=== PATIENT | male | born 1960 ===

== ENCOUNTER 2023-03-14 20:11 | Emergency (ER) | payer SELFPAY | END 2023-03-14 21:30 | disposition left against medical advice (07) | LOC: MW.ED 20:11 → MERGE 20:11 → MW.ED 21:30 | DX: Z53.21 Procedure and treatment not carried out due to patient leaving prior to being seen by health care provider (principal) ==

== ENCOUNTER 2023-03-15 08:45 | Emergency (ER) | payer SELFPAY ==
[2023-03-15] MEDS ORDERED: Ibuprofen 600 MG Tab PO ONE (09:48)
[2023-03-15] MEDS ORDERED: Acetaminophen 500 MG Tab PO ONE (09:48)
[2023-03-15] MEDS ORDERED: Lidocaine 1% with EPINEPHrine 1:100,000 10 ML MDV INJECT ONE (09:49)
[2023-03-15] MEDS ORDERED: Lidocaine 1% with EPINEPHrine 1:100,000 50 ML MDV INJECT ONE (10:00)
== END 2023-03-15 10:47 | disposition home or self-care (01) ==
LOC: MERGE 08:45 → MW.ED 08:45
DX: S61.412A Laceration without foreign body of left hand, initial encounter (principal); Z86.16 Personal history of COVID-19; W26.8XXA Contact with other sharp object(s), not elsewhere classified, initial encounter
CPT/HCPCS: 12001; 73120; 99283; A9270; J3490

== ENCOUNTER 2023-03-21 09:40 | Emergency (ER) | payer SELFPAY | END 2023-03-21 09:51 | disposition home or self-care (01) | LOC: MW.ED 09:40 | DX: Z48.02 Encounter for removal of sutures (principal) | CPT/HCPCS: 99281 ==